=== PATIENT | male | born 1995 | race Caucasian/White ===

== ENCOUNTER 2023-10-31 12:35 | Inpatient (IN) | payer BC ==
[~2023-10-31] VITALS: Ht 180.3 cm; Wt 99.8 kg
[2023-10-31] MEDS ORDERED: DIATRIZOATE MEGL/DIATRIZOA SOD 30 ML BTL PO ONE (13:12)
[2023-10-31] MEDS ORDERED: IOPAMIDOL 370 MG/ML 100 ML INFUS..BTL INJ ONE ×3 (13:12→14:19)
[2023-10-31 13:24] LABS: BASOPHILS # (AUTO) 0.1 (0.0-0.1); BASOPHILS % 0.4 % (0.0-1.0); EOSINOPHILS % 0.1 % (0.0-6.0); HEMOGLOBIN 15.4 g/dL (14.0-18.0); LYMPHOCYTES # (AUTO) 1.2 (1.0-3.2); LYMPHOCYTES % 8.7 % (18.0-39.1); MEAN CORPUSCULAR HEMOGLOBIN 29.5 pg (28-32); MEAN CORPUSCULAR VOLUME 84.3 fL (81-99); MONOCYTES # (AUTO) 1.1 (0.2-0.8); MONOCYTES % 7.6 % (4.4-11.3); NEUTROPHILS # (AUTO) 11.7 (2.1-6.9); NEUTROPHILS % 82.9 % (38.7-80.0); PLATELET COUNT 220 x10e3/uL (140-360); RED BLOOD COUNT 5.22 x10e6/uL (4.3-5.7); RED CELL DISTRIBUTION WIDTH 12.1 % (11.7-14.4); WHITE BLOOD COUNT 14.06 x10e3/uL (4.8-10.8)
[2023-10-31 13:37] LABS: ALBUMIN 4.1 g/dL (3.5-5.0); ANION GAP 16.8 mmol/L (8-16); BILIRUBIN,TOTAL 0.8 mg/dL (0.2-1.2); CALCIUM 9.7 mg/dL (8.4-10.2); CREATININE, SERUM 0.92 mg/dL (0.72-1.25); MAGNESIUM 1.9 MG/DL (1.3-2.1); POTASSIUM 3.8 mmol/L (3.5-5.1); TOTAL PROTEIN 8.1 g/dL (6.5-8.1)
[2023-10-31] MEDS ORDERED: SODIUM CHLORIDE 0.9% 100 ML ONE (14:37)
[2023-10-31] MEDS ORDERED: SODIUM CHLORIDE 0.9% 1000ML 1,000 ML ONE ×2 (14:38→16:31)
[2023-10-31] MEDS ORDERED: METRONIDAZOLE 500MG/NS 100ML 100 ML IV ONE ×2 (14:38→17:49)
[2023-10-31] MEDS ORDERED: PIPERACILLIN/TAZOBACTAM 3.375 GM VIAL ONE ×2 (14:43→20:28)
[2023-10-31] MEDS: SODIUM CHLORIDE 0.9% 1000ML 1,000 ML IV STA (15:03)
[2023-10-31 15:36] LABS: INR 1.04; PROTHROMBIN TIME 14.3 seconds (11.9-14.5)
[2023-10-31] MEDS: METRONIDAZOLE 500MG/NS 100ML 100 ML IV SCH (15:36)
[2023-10-31 15:37] LABS: PARTIAL THROMBOPLASTIN TIME 34.5 seconds (23.8-35.5)
[2023-10-31] MEDS: SODIUM CHLORIDE 0.9% 1000ML 1,000 ML IV SCH (16:00)
[2023-10-31] MEDS ORDERED: ONDANSETRON HCL INJ 2MG/ML 2ML 2 MG/ML VIAL IV PRN (16:00)
[2023-10-31] MEDS ORDERED: Morphine 4mg INJECTION 4 MG/ML INJ IV PRN (16:00)
[2023-10-31] MEDS ORDERED: ONDANSETRON HCL INJ 2MG/ML 2ML 2 MG/ML VIAL ONE (16:31)
[2023-10-31] MEDS ORDERED: Morphine 4mg INJECTION 4 MG/ML INJ ONE (16:31)
[2023-10-31] MEDS: ONDANSETRON HCL INJ 2MG/ML 2ML 2 MG/ML VIAL IV STA (16:53)
[2023-10-31] MEDS: Morphine 4mg INJECTION 4 MG/ML INJ IV ONE (16:54)
[2023-10-31 17:15] VITALS: BP 116/75; PULSE 87; RESP 20; TEMP 98.4; O2SAT 97
[2023-10-31 17:33] VITALS: BP 116/75; PULSE 87; RESP 20; TEMP 98.4; O2SAT 97
[2023-10-31 20:35] VITALS: BP 115/69; PULSE 80; RESP 17; TEMP 96.9; O2SAT 98
[2023-10-31 21:00] VITALS: BP 115/69; PULSE 80; RESP 17; TEMP 96.9; O2SAT 98
[2023-11-01] VITALS (9 sets, daily range): BP systolic 99–117; BP diastolic 62–80; PULSE 57–83; RESP 17–18; TEMP 97.3–98.6; O2SAT 98–100
[2023-11-01 05:32] LABS: BASOPHILS % 0.3 % (0.0-1.0); EOSINOPHILS # (AUTO) 0.1 (0.0-0.4); EOSINOPHILS % 0.7 % (0.0-6.0); HEMATOCRIT 39.9 % (38.2-49.6); HEMOGLOBIN 12.8 g/dL (14.0-18.0); LYMPHOCYTES # (AUTO) 1.7 (1.0-3.2); LYMPHOCYTES % 19.2 % (18.0-39.1); MEAN CORPUSCULAR HEMOGLOBIN 28.8 pg (28-32); MEAN CORPUSCULAR HGB CONC 32.1 g/dL (31-35); MEAN CORPUSCULAR VOLUME 89.7 fL (81-99); MONOCYTES # (AUTO) 0.8 (0.2-0.8); MONOCYTES % 9.1 % (4.4-11.3); NEUTROPHILS # (AUTO) 6.1 (2.1-6.9); NEUTROPHILS % 70.4 % (38.7-80.0); PLATELET COUNT 187 x10e3/uL (140-360); RED BLOOD COUNT 4.45 x10e6/uL (4.3-5.7); WHITE BLOOD COUNT 8.69 x10e3/uL (4.8-10.8)
[2023-11-01 05:55] LABS: ALBUMIN 3.3 g/dL (3.5-5.0); ANION GAP 13.3 mmol/L (8-16); BILIRUBIN,TOTAL 0.8 mg/dL (0.2-1.2); CALCIUM 8.9 mg/dL (8.4-10.2); CREATININE, SERUM 0.81 mg/dL (0.72-1.25); POTASSIUM 4.3 mmol/L (3.5-5.1); TOTAL PROTEIN 6.5 g/dL (6.5-8.1)
[2023-11-01] MEDS ORDERED: PIPERACILLIN/TAZOBACTAM 3.375 GM VIAL ONE ×4 (08:02→20:14)
[2023-11-01] MEDS ORDERED: SODIUM CHLORIDE 0.9% 1000ML 1,000 ML ONE ×2 (08:04→15:52)
[2023-11-01] MEDS ORDERED: SODIUM CHLORIDE 0.45% 1,000 ML ONE (08:20)
[2023-11-01] MEDS ORDERED: SODIUM CHLORIDE 0.45% 1,000 ML BAG ONE (09:17)
[2023-11-01] MEDS ORDERED: Sodium Chloride 0.9% 50ML Bag ONE (10:41)
[2023-11-01] MEDS ORDERED: METRONIDAZOLE 500MG/NS 100ML IV ONE (10:41)
[2023-11-01] MEDS ORDERED: SODIUM CHLORIDE 0.9% 1000 ML BAG ONE (10:41)
[2023-11-01] MEDS ORDERED: METRONIDAZOLE 500MG/NS 100ML 100 ML IV ONE ×2 (12:16→15:52)
[2023-11-02] VITALS (7 sets, daily range): BP systolic 105–120; BP diastolic 66–83; PULSE 64–83; RESP 16–20; TEMP 97.4–97.9; O2SAT 98–100
[2023-11-02 05:19] LABS: BASOPHILS % 0.4 % (0.0-1.0); EOSINOPHILS # (AUTO) 0.1 (0.0-0.4); EOSINOPHILS % 0.8 % (0.0-6.0); HEMATOCRIT 39.8 % (38.2-49.6); HEMOGLOBIN 13.3 g/dL (14.0-18.0); LYMPHOCYTES # (AUTO) 1.5 (1.0-3.2); MEAN CORPUSCULAR HEMOGLOBIN 29.1 pg (28-32); MEAN CORPUSCULAR HGB CONC 33.4 g/dL (31-35); MEAN CORPUSCULAR VOLUME 87.1 fL (81-99); MONOCYTES # (AUTO) 0.5 (0.2-0.8); MONOCYTES % 7.4 % (4.4-11.3); NEUTROPHILS % 70.1 % (38.7-80.0); PLATELET COUNT 154 x10e3/uL (140-360); RED BLOOD COUNT 4.57 x10e6/uL (4.3-5.7); RED CELL DISTRIBUTION WIDTH 11.8 % (11.7-14.4); WHITE BLOOD COUNT 7.13 x10e3/uL (4.8-10.8)
[2023-11-02 06:19] LABS: ALBUMIN 3.2 g/dL (3.5-5.0); ALBUMIN/GLOBULIN RATIO 0.9 (0.8-2.0); ANION GAP 16.5 mmol/L (8-16); BILIRUBIN,TOTAL 0.7 mg/dL (0.2-1.2); CALCIUM 8.7 mg/dL (8.4-10.2); CREATININE, SERUM 0.75 mg/dL (0.72-1.25); MAGNESIUM 1.8 MG/DL (1.3-2.1); POTASSIUM 4.5 mmol/L (3.5-5.1); TOTAL PROTEIN 6.6 g/dL (6.5-8.1)
[2023-11-02] MEDS ORDERED: SODIUM CHLORIDE 0.9% 1000ML 1,000 ML ONE (08:42)
[2023-11-02] MEDS ORDERED: PIPERACILLIN/TAZOBACTAM 3.375 GM VIAL ONE ×3 (08:42→19:17)
[2023-11-02] MEDS ORDERED: METRONIDAZOLE 500MG/NS 100ML 100 ML IV ONE ×2 (12:00→16:32)
[2023-11-02] MEDS ORDERED: Sodium Chloride 0.9% 50ML Bag ONE (19:17)
[2023-11-02] MEDS ORDERED: METRONIDAZOLE 500MG/NS 100ML IV ONE (19:17)
[2023-11-02] MEDS ORDERED: SODIUM CHLORIDE 0.9% 1000 ML BAG ONE (19:17)
[2023-11-03 00:21] VITALS: BP 102/71; PULSE 75; RESP 17; TEMP 97.6; O2SAT 100
[2023-11-03 04:00] VITALS: BP 114/67; PULSE 67; RESP 17; TEMP 97.7; O2SAT 97
[2023-11-03 05:58] LABS: BASOPHILS % 0.7 % (0.0-1.0); EOSINOPHILS % 0.7 % (0.0-6.0); HEMATOCRIT 38.9 % (38.2-49.6); HEMOGLOBIN 12.6 g/dL (14.0-18.0); LYMPHOCYTES # (AUTO) 1.9 (1.0-3.2); LYMPHOCYTES % 31.6 % (18.0-39.1); MEAN CORPUSCULAR HEMOGLOBIN 28.3 pg (28-32); MEAN CORPUSCULAR HGB CONC 32.4 g/dL (31-35); MEAN CORPUSCULAR VOLUME 87.4 fL (81-99); MONOCYTES # (AUTO) 0.6 (0.2-0.8); MONOCYTES % 9.4 % (4.4-11.3); NEUTROPHILS # (AUTO) 3.5 (2.1-6.9); NEUTROPHILS % 57.3 % (38.7-80.0); PLATELET COUNT 207 x10e3/uL (140-360); RED BLOOD COUNT 4.45 x10e6/uL (4.3-5.7); RED CELL DISTRIBUTION WIDTH 11.7 % (11.7-14.4); WHITE BLOOD COUNT 6.07 x10e3/uL (4.8-10.8)
[2023-11-03 06:40] LABS: ALANINE AMINOTRANSFERASE 16 IU/L (0-55); ALBUMIN 3.3 g/dL (3.5-5.0); ALBUMIN/GLOBULIN RATIO 1.1 (0.8-2.0); ALKALINE PHOSPHATASE 51 IU/L (40-150); ANION GAP 13.1 mmol/L (8-16); BILIRUBIN,TOTAL 0.4 mg/dL (0.2-1.2); BLOOD UREA NITROGEN < 5 mg/dL (7-26); CALCIUM 8.8 mg/dL (8.4-10.2); CARBON DIOXIDE 22 mmol/L (22-29); CHLORIDE 108 mmol/L (98-107); EST GLOMERULAR FILTRATION RATE 124 ML/MIN (>=60); GLUCOSE 83 mg/dL (74-118); POTASSIUM 4.1 mmol/L (3.5-5.1); SODIUM 139 mmol/L (136-145); TOTAL PROTEIN 6.3 g/dL (6.5-8.1)
[2023-11-03 06:42] LABS: BUN/CREATININE RATIO 6 (6-25)
[2023-11-03 08:31] VITALS: BP 123/81; PULSE 58; RESP 20; TEMP 97.8; O2SAT 98
[2023-11-03 12:00] VITALS: BP 110/83; PULSE 61; RESP 20; TEMP 97.7; O2SAT 98
[2023-11-03 16:09] VITALS: BP 115/79; PULSE 63; RESP 20; TEMP 98.4; O2SAT 100
[2023-11-03 20:00] VITALS: BP 111/78; PULSE 61; RESP 18; TEMP 98; O2SAT 99
[2023-11-04] VITALS: BP 98/60; PULSE 53; RESP 18; TEMP 97.6; O2SAT 100
[2023-11-04 04:00] VITALS: BP 102/74; PULSE 49; RESP 18; TEMP 97.1; O2SAT 100
[2023-11-04] MEDS ORDERED: SODIUM CHLORIDE 0.9% 1000ML 1,000 ML ONE (05:40)
[2023-11-04] MEDS ORDERED: PIPERACILLIN/TAZOBACTAM 3.375 GM VIAL ONE (07:42)
[2023-11-04 08:21] VITALS: BP 118/84; PULSE 52; RESP 18; TEMP 97.6; O2SAT 99
[2023-11-04] MEDS ORDERED: METRONIDAZOLE 500MG/NS 100ML 100 ML IV ONE (11:25)
[2023-11-04] MEDS ORDERED: LEVOFLOXACIN750 MG PO (11:28)
[2023-11-04] MEDS ORDERED: METRONIDAZOLE500 MG PO (11:28)
== END 2023-11-04 12:37 | disposition home or self-care (01) | DRG 392 ==
LOC: ER 12:51 → ERHOLD 15:59 → MED/SURG2 17:05
PROVIDERS: ADMIT Internal Medicine; ATTEND Internal Medicine
DX: K57.20 Diverticulitis of large intestine with perforation and abscess without bleeding (principal); K76.0 Fatty (change of) liver, not elsewhere classified; E66.9 Obesity, unspecified; Z68.30 Body mass index [BMI] 30.0-30.9, adult; Z72.0 Tobacco use; Z11.52 Encounter for screening for COVID-19; Z83.79 Family history of other diseases of the digestive system
CPT/HCPCS: 36415; 74177; 80053; 83735; 85025; 85610; 85730; 87040; 99284; J2270; J2405; J2543; J7030; J7050; Q9963; Q9967; U0002